=== PATIENT | male | born 1980 | race Caucasian/White ===

== ENCOUNTER 2025-04-29 21:27 | Emergency (ER) | payer BC ==
[2025-04-29] MEDS: Ketorolac 30 MG/ML SDV IM ONE (22:16)
== END 2025-04-29 23:35 | disposition home or self-care (01) ==
LOC: MERGE 21:27 → MW.ED 21:27
DX: S82.832A Other fracture of upper and lower end of left fibula, initial encounter for closed fracture (principal); Z79.899 Other long term (current) drug therapy; X50.1XXA Overexertion from prolonged static or awkward postures, initial encounter
CPT/HCPCS: 73590; 73610; 96372; 99283; J1885; 99282